=== PATIENT | female | born 1960 | race Caucasian/White ===

== ENCOUNTER 2017-08-16 11:59 | Emergency (ER) | payer OTHER ==
[~2017-08-16] VITALS: Ht 170.2 cm; Wt 107.5 kg
[~2017-08-16 11:59] MED LIST: CIPRO500 MG PO; FLAGYL500 MG PO; HYDROCHLOROTHIA25 MG PO; LISINOPRIL20 MG PO; LOSARTAN POTAS100 MG PO; METOPROLOL SUC100 MG PO
[2017-08-16 12:47] LABS: HEMATOCRIT 41.5 % (36.0-46.0); HEMOGLOBIN 14.1 G/DL (11.9-15.5); MCH 29.4 PG (29.0-34.0); MCV 86.6 FL (83-99); RBC DIS.WIDTH-CV 12.9 % (11.8-14.6); RBC DIS.WIDTH-SD 40.9 % (39-53); RED BLOOD COUNT 4.79 M/uL (3.80-5.20); WHITE BLOOD COUNT 10.1 K/uL (4.1-10.2)
[2017-08-16 12:58] LABS: ALBUMIN 4.2 g/dL (3.2-4.8); CHLORIDE 105 mEq/L (99-109); POTASSIUM 4.2 mEq/L (3.7-5.4); SODIUM 140 mEq/L (136-147)
[2017-08-16 13:01] LABS: GLUCOSE 119 mg/dL (70-99); TOTAL PROTEIN 8.1 g/dL (6.4-8.3)
[2017-08-16 13:02] LABS: TOTAL BILIRUBIN 0.7 mg/dL (0.0-1.0)
[2017-08-16 13:04] LABS: ALKALINE PHOSPHATASE 89 IU/L (3-129); GFR ESTIMATE (CALCULATED) > 59 mL/min/
[2017-08-16 13:05] LABS: UREA NITROGEN (BUN) 13 mg/dL (9-23)
[2017-08-16 13:06] LABS: AST (GOT) 17 IU/L (2-34)
[2017-08-16 13:07] LABS: ALT (GPT) 21 IU/L (3-49)
[2017-08-16 13:08] LABS: LIPASE 24 U/L (1.0-51.0)
[2017-08-16 13:42] LABS: PLAT.SUFFICIENCY ADEQUATE; PLATELET CLUMPS PRESENT - PLATELET COUNT APPEARS ADQ.; PLATELET COUNT UNABLE TO REPORT K/uL (156-360)
[2017-08-16] MEDS ORDERED: CIPRO500 MG PO (15:11)
[2017-08-16] MEDS ORDERED: FLAGYL500 MG PO (15:11)
[2017-08-16 15:52] VITALS: BP 139/71
== END 2017-08-16 15:54 | disposition home or self-care (01) ==
LOC: EME 11:59
DX: R10.31 Right lower quadrant pain (principal); K57.92 Diverticulitis of intestine, part unspecified, without perforation or abscess without bleeding; I42.9 Cardiomyopathy, unspecified; I25.2 Old myocardial infarction; Z95.0 Presence of cardiac pacemaker; Z87.19 Personal history of other diseases of the digestive system; Z88.0 Allergy status to penicillin
CPT/HCPCS: 74177; 80053; 81003; 83690; 85027; J7040